=== PATIENT | male | born 1980 | race Caucasian/White ===

== ENCOUNTER 2021-08-19 21:28 | Emergency (ER) | payer OTHER ==
[2021-08-19 22:14] LABS: BASOPHIL 0.6 % (0-2); EOSINOPHIL 1.9 % (0-5); HCT 43.4 % (42.0-52.0); HGB 14.9 g/dl (13.2-18.0); LYMPHOCYTE 41.4 % (15-48); MCH 30.7 pg (25.0-31.0); MCHC 34.3 g/dL (32.0-36.0); MCV 89.3 fL (78.0-100.0); MONOCYTE 6.7 % (0-12); MPV 11.5 fL (6.0-9.5); NEUTROPHIL 49.2 % (41-80); NRBC 0; PLT 161 K/uL (150-400); RBC 4.86 M/uL (4.70-6.00); RDW 13.5 % (11.5-14.0); WBC 5.3 K/uL (4.0-10.5)
[2021-08-19 22:29] LABS: ALBUMIN 4.1 g/dL (3.4-5.0); BILIRUBIN - TOTAL 0.6 mg/dL (0.2-1.0); BUN/CREAT RATIO (CALC) 7.8 RATIO; CREATININE 1.28 mg/dL (0.67-1.17); GLOBULIN (CALCULATION) 3.4 g/dL; POTASSIUM 3.6 mmol/L (3.5-5.1); TOTAL PROTEIN 7.5 g/dL (6.4-8.2)
[2021-08-19 22:37] LABS: INR 0.86 (0.9-1.2); PROTHROMBIN TIME 11.2 SECONDS (11.8-13.4); PTT 23.1 SECONDS (24.4-34.7)
[2021-08-19 22:38] LABS: D-DIMER 0.5 ug/mLFEU (0.00-0.41)
[2021-08-19 22:56] LABS: C-REACTIVE PROTEIN < 0.20 mg/dL (<=0.90); LDH 269 U/L (85-227)
[2021-08-19 23:39] LABS: CORONAVIRUS 2019 SARS-COV-2 NEGATIVE (NEGATIVE); INFLUENZA A NAA NEGATIVE (NEGATIVE)
== END 2021-08-20 01:02 | disposition home or self-care (01) ==
LOC: FER 21:28
PROVIDERS: Emergency Medicine
DX: R07.89 Other chest pain (principal); R42 Dizziness and giddiness; I10 Essential (primary) hypertension; F17.210 Nicotine dependence, cigarettes, uncomplicated; Z20.822 Contact with and (suspected) exposure to COVID-19
CPT/HCPCS: 36415; 70450; 71045; 80053; 82728; 83615; 83735; 83880; 84484; 85025; 85379; 85610; 85730; 86140; 93005; J7030; U0002